=== PATIENT | female | born 1960 | race Hispanic/Latino ===

== ENCOUNTER 2016-09-02 10:19 | Emergency (ER) | payer OTHER ==
[~2016-09-02] VITALS: Ht 167.6 cm; Wt 125.0 kg
[~2016-09-02 10:19] MED LIST: ATEN50TA PO; KLO5T PO; LEVO100T6 PO; LISI30TA5 PO; PROZ20 PO; TRIA1CAP5 PO
[2016-09-02 10:26] VITALS: BP 112/71; PULSE 61; RESP 18; O2SAT 93
--- NOTE | 2016-09-02 11:02 | ED.REPORT ---
HPI-General Illness Date of Service Sep 02, 2016 ED Provider: Darnell Moreno MD The patient is a 56 year old female with history of hypertension, thyroid disease, and breast cancer s/p lumpectomy, who was sent to the emergency department from urgent care for upper back pain. The patient went to urgent care this morning for blood pressure issues. She feels like she has no energy. She has also experienced nausea, changes in temperature from hot to cold, and heel pain causing difficulty walking. She also feels like her skin is extremely dry. She denies chest pain, cough, hemoptysis, congestion, runny nose, sore throat, chest pain, shortness of breath, lower extremity swelling, abdominal pain, constipation, diarrhea, or dysuria. Nursing Notes Stated Complaint: UPPER BACK PAIN Chief Complaint: General Complaint Nursing Notes Reviewed: Yes Allergies: Coded Allergies: No Known Allergies (Verified Allergy, Unknown, 01/15/16) Scheduled Atenolol (Atenolol) 50 Mg Tablet 50 MG PO DAILY Azithromycin (Zithromax (Z-Ward)) 250 Mg Tablet 250 MG PO DIRECTED Take two tablets by mouth on day 1, then take one tablet daily on days 2 through 5. Fluoxetine (Prozac) 20 Mg Capsule 60 MG PO DAILY Levothyroxine (Levothyroxine) 100 Mcg Tablet 100 MCG PO DAILY Levothyroxine (Levothyroxine) 125 Mcg Tablet 125 MCG PO DAILY Lisinopril (Lisinopril) 30 Mg Tablet 20 MG PO DAILY Triamterene/HCTZ 37.5-25 mg (Triamterene/HCTZ 37.5-25 mg) 1 Each Capsule 1 CAPSULE PO DAILY Scheduled PRN Clonazepam (Clonazepam) 0.5 Mg Tablet 0.5 MG PO BID PRN PRN For Anxiety General Time Seen by MD: 10:38 Chief Complaint Back pain Hx Obtained From: Patient Arrived By: Wheelchair Sudden in Onset?: No Symptom Duration: Since onset Location: : Back: Foot left: Foot right Quality: Painful Severity: Current: Moderate Severity: Maximum: Moderate Recent Healthcare: No recent hospitalization, Recent doctor visit Similar Sx Previous: No Past Medical History Past Medical History Breast cancer Reports: Hypertension Reports: Thyroid disease Past Surgical History Lumpectomy Hand surgery Reports: Hysterectomy Family History Reports: Stroke Smoking History Current Every Day Smoker Social History Alcohol Use: "Social" Drug Use: THC Other Social History: Poor social support, Local resident Ambulatory Status Independent Review of Systems +temperature changes, dry skin Full Review of Systems Constitutional: Reports: Fatigue Ears / Nose / Throat: Denies: Nasal congestion, Sore throat Respiratory: Denies: Hemoptysis, Non-productive cough, Shortness of breath Cardiovascular: Denies: Chest pain GI: Reports: Nausea, Denies: Abdominal pain, Constipation, Diarrhea, Vomiting Female: Denies: Dysuria Musculoskeletal: Reports: Back pain, Extremity pain (heel pain), Denies: Extremity swelling Neurologic: Reports: Problem walking (due to pain) Complete sys rev & neg: except as marked. Physical Exam Vital Signs Vital Signs Date Time Temp Pulse Resp B/P Pulse Ox O2 Delivery O2 Flow Rate FiO2 09/02/16 14:03 66 15 131/80 97 Room Air 09/02/16 14:02 66 15 131/80 97 Room Air 09/02/16 10:26 36.0 61 18 112/71 93 Room Air Initial VS: Reviewed Head / Eyes: Atraumatic, Normocephalic, PERRL ENT: Mucous membranes moist, Conjunctiva normal, No scleral icterus Neck: Supple, Non-tender, Full range of motion Lymphatic: No lymphadenopathy Extremities: Vascular intact, Neuro intact, No swelling, No tenderness Skin: Warm, Dry, No cyanosis Neurologic: Alert, Oriented, Nonfocal Psychiatric: Mood/affect normal, Behavior normal, Normal thought content General/Constitutional: Awake, Alert, Well appearing Respiratory / Chest: Atraumatic, Breath sounds NL, Breath sounds = bilat, No respiratory distress, No rales, No rhonchi, No wheezing Cardiovascular: Heart rate NL, Regular rhythm, Heart sounds NL, No murmurs, No rubs, Cap refill not delayed, Peripheral circulation NL Abdomen: Atraumatic, Soft, Non-tender, No guarding, No rebound, BS normoactive , No distention Interpretation & Diagnostics Lab Results Interpretation Result Diagram: 09/02/16 1101 09/02/16 1101 Test 09/02/16 11:01 White Blood Count 9.8th/mm3 (3.8-10.1) Red Blood Count 4.56mil/mm3 (3.90-5.20) Hemoglobin 13.8g/dL (12.0-15.6) Hematocrit 42.0% (35.0-46.0) Mean Corpuscular Volume 92.1fL (81-100) Mean Corpuscular Hemoglobin 30.3pg (27.0-35.0) Mean Corpuscular Hemoglobin Concent 32.9% (32.0-37.0) Red Cell Distribution Width 13.9% (12.3-15.4) Platelet Count 153bil/L (150-400) Neutrophils (%) (Auto) 70.0% (40-74) Lymphocytes (%) (Auto) 19.0% (14-46) Monocytes (%) (Auto) 6.4% (4-12) Eosinophils (%) (Auto) 3.7% (0-5) Basophils (%) (Auto) 0.6% (0-3) D-Dimer 1.06mg/L FEU (<0.50) Sodium Level 138mEq/L (134-144) Potassium Level 3.9mEq/L (3.5-5.2) Chloride Level 101mEq/L (97-108) Carbon Dioxide Level 20mmol/L (18-29) Blood Urea Nitrogen 18mg/dL (6-24) Creatinine 1.14mg/dL (0.57-1.00) Estimat Glomerular Filtration Rate 71mL/min (>59) Glucose Level 116mg/dL (60-99) Calcium Level 9.3mg/dL (8.5-10.1) Total Bilirubin 0.3mg/dL (0.0-1.2) Aspartate Amino Transf (AST/SGOT) 17U/L (0-50) Alanine Aminotransferase (ALT/SGPT) 20U/L (0-32) Alkaline Phosphatase 71U/L (25-150) Troponin T < 0.010ug/L (0.0-0.011) Total Protein 7.4g/dL (6.4-8.4) Albumin 3.7g/dL (3.4-5.0) Thyroid Stimulating Hormone (TSH) 57.930uIU/mL (0.450-4.500) Hold Villanueva Top Tube Received (Received) CT Chest Interpretation IMPRESSION: 1. No evidence of pulmonary embolism. 2. Mild bronchial wall prominence within the infrahilar regions may be exaggerated by expiratory technique. Bronchitis may also have this appearance. No consolidating pneumonia or pleural effusion. 3. Postoperative changes of the left breast and axilla. Skin thickening of the left breast may be postoperative or related to radiation change. Please correlate clinically. 4. Prominent thyroid gland is not adequately evaluated. 5. Hepatic steatosis. 6. Small hiatal hernia. Dictated by: Prudencio Mc M.D. on 09/02/2016 at 12:14 Study type: CT pulm angiogram Interpretation / Wet Read by: Interpret - Radiologist Re-Eval/Medical Decision Med Decision/Clinical Course 56-year-old female history of hypothyroidism, obesity presenting sent in by urgent care for left subscapular pain. Patient reports this is resolved. She reports decreased energy for several days. Her levothyroxine was recently increased from 100-125. Her TSH is markedly elevated. D-dimer elevated therefore CT and her chest performed with no PE. Did show possible bronchitis. She has had a cough productive of some sputum recently with no fevers or shortness of breath. Given patient's levothyroxin recently increased to weeks ago recommend she continue this follow-up with her primary doctor in 2 days with plans for repeat thyroid studies as an outpatient. She was given azithromycin for bronchitis. Return precautions given. Source of Hx: Old records Time of Eval: 13:38 Re-Evaluation/Progress Note: Rechecked the patient. Discussed results, diagnosis, and plan for discharge. All qusetions were addressed. Counseled Regarding: Diagnosis, Lab results, Need for follow-up, When/why to return to ED Discharge & Departure Primary Impression: Bronchitis Additional Impression: Hypothyroidism Hypothyroidism type: unspecified Qualified Code: E03.9 - Hypothyroidism, unspecified Disposition: Home Discharge Condition All VS Reviewed: Yes Condition: Stable Patient Instructions: Acute Bronchitis (ED), Hypothyroidism (ED) Additional Instructions: Thank you for entrusting us with your care today. Your workup today included: labs and chest CT. There is no evidence of a pulmonary embolism. Your TSH level was elevated which is consistent with hypothyroidism. You will need to increase your levothyroxine dose to 125 Mcg daily. I have also written you a prescription for azithromycin for the bronchitis. Call your regular doctor today to schedule a close followup appointment in the next 2-3 days. Please return to the emergency department if you develop worsening shortness of breath , chest pain, fatigue, or any other new or concerning symptoms. Referrals: Tangela Lyons DO (PCP) Ty Attestation Portions of this note were transcribed by Debra Woody. I, Dr. Moreno personally performed the history, physical exam and medical decision-making; I reviewed and confirmed the accuracy of the information in the transcribed note. Signed by: Ty Samuel, 09/02/2016 at 1345. copies to: Tangela Lyons Ben M MD Sep 02, 2016 11:02 Debra Woody Sep 02, 2016 11:11
[2016-09-02 11:10] LABS: BASOPHILS % (AUTO) 0.6 % (0-3); EOSINOPHILS % (AUTO) 3.7 % (0-5); MONOCYTES % (AUTO) 6.4 % (4-12); Mean Corpuscular Hemoglobin 30.3 pg (27.0-35.0); Mean Corpuscular Volume 92.1 fL (81-100); Platelet Count 153 bil/L (150-400)
[2016-09-02] MEDS ORDERED: Ondansetron 2 mg/mL 2 mL Inj IVPUSH PRN (12:50)
--- NOTE | 2016-09-02 13:23 | DRSVH ---
PROCEDURE: CT ANGIO CHEST PULMONARY EMBOLISM ([id number]) INDICATIONS: LEFT SIDED CHEST PAIN, r/o PE TECHNIQUE: After the administration of intravenous contrast, 2 mm thick sections acquired from the pulmonary api vinny to the posterior costophrenic angles. 3-dimensional maximum intensity projection (MIP) coronal a nd sagittal reformats were then acquired through the thorax. For radiation dose reduction, the follo wing was used: automated exposure control, adjustment of mA and/or kV according to patient size. COMPARISON: None. FINDINGS: Image quality: Diagnostic. Pulmonary arteries: Pulmonary arteries are normal in size, and demonstrate no intraluminal filling d efects to suggest central pulmonary embolism. Lungs and pleura: Notion of the lung parenchyma is limited on this examination given the expiratory s stiles. Mild prominence of the guerrier of the infrahilar bronchi are noted. There is no lobar consolida tion, effusion, or pneumothorax. Evaluation for pulmonary edema is limited on this study. No lung m ass or obvious pulmonary nodule is evident. However, evaluation for pulmonary nodules is limited. Mediastinum: Heart size is normal, without pericardial effusion. No mediastinal or hilar adenopathy . Thoracic aorta is normal in caliber and enhancement. Esophagus is normal in caliber, with a small hiatal hernia. Bones and chest wall: No suspicious bony lesions. Ribs and thoracic spine appear intact throughout. Moderate degenerative changes of the spine are present. Thyroid gland prominent in size. No axill tanna or supraclavicular adenopathy. Postoperative changes are present within the left axilla, suggest ing prior lymph node dissection. There also are clips seen within the left breast. Prominent thicke debby of the skin of the left breast is noted, compared to the right. Abdomen: The imaged portions of the upper abdomen demonstrate the liver to be diffusely hypodense whe n compared to the spleen. A small calcification is noted within the left adrenal gland, which is of doubtful significance. IMPRESSION: 1. No evidence of pulmonary embolism. 2. Mild bronchial wall prominence within the infrahilar regions may be exaggerated by expiratory félix hnique. Bronchitis may also have this appearance. No consolidating pneumonia or pleural effusion. 3. Postoperative changes of the left breast and axilla. Skin thickening of the left breast may be p ostoperative or related to radiation change. Please correlate clinically. 4. Prominent thyroid gland is not adequately evaluated. 5. Hepatic steatosis. 6. Small hiatal hernia. Dictated by: Prudencio Mc M.D. on 09/02/2016 at 12:14 Approved by: Prudencio Mc M.D. on 09/02/2016 at 12:21
[2016-09-02] MEDS ORDERED: AZIT250T4 PO (13:36)
[2016-09-02] MEDS ORDERED: LEVO125T6 PO (13:36)
[2016-09-02 14:02] VITALS: BP 131/80; PULSE 66; RESP 15; O2SAT 97
[2016-09-02 14:03] VITALS: BP 131/80; PULSE 66; RESP 15; O2SAT 97
== END 2016-09-02 14:05 | disposition home or self-care (01) ==
LOC: SED 10:19
DX: J40 Bronchitis, not specified as acute or chronic (principal); E03.9 Hypothyroidism, unspecified; I10 Essential (primary) hypertension; F17.200 Nicotine dependence, unspecified, uncomplicated; K44.9 Diaphragmatic hernia without obstruction or gangrene; K76.0 Fatty (change of) liver, not elsewhere classified; Z85.3 Personal history of malignant neoplasm of breast
CPT/HCPCS: 71275; 80053; 84443; 84484; 85025; 85378; 96374; 99285; J2405; Q9967

== ENCOUNTER → 2017-02-20 | Day surgery (SDC) | payer OTHER ==
[~2017-02-20] VITALS: Ht 167.6 cm; Wt 124.8 kg
[~2017-02-20] MED LIST changes: +0.9% Sodium Chloride 1,000 ML IV SCH; +AZIT250T4 PO; +LEVO125T6 PO; +Sodium Chloride LOK Flush 10 mL Syringe IV PRN; +fentaNYL-PF 50 mCg/mL 2 mL Inj IVPUSH PRN
[2017-02-20 12:14] VITALS: BP 145/83; PULSE 57; RESP 17; O2SAT 95
--- NOTE | 2017-02-20 12:32 | PCM.ENDCOL ---
Colonoscopy Date of Service: Feb 20, 2017 Physician Jose L Cason MD Pre Procedure Diagnosis: Screening Post Procedure Dx & Findings: Polyp hemorrhoids diverticula Procedure Colonoscopy PROCEDURE IN DETAIL: Prep adequate Withdrawal time 10 minutes After unremarkable rectal examination the Olympus video colonoscope was inserted patient's anal canal and was advanced to cecum. Landmarks were identified including the ileocecal valve and appendiceal orifice. Scope was withdrawn systematically. Visualized colonic mucosa showed healthy shiny mucosa with normal healthy-appearing vasculature. In the cecum, there was a 1 mm polyp which was removed completely with cold forceps. In the descending colon, there was a 3 mm polyp which was removed completely with cold snare. In the sigmoid colon, there was a 3 mm polyp was removed which was removed completely using cold snare. Patient with diverticula mostly in the sigmoid colon but scattered all the way into the proximal ascending colon. There were small and large. In the rectum retroflexion was done which showed hemorrhoids. Anal canal was inspected carefully on the way out and hemorrhoids noted. Impression Polyp 3 status post complete removal Diverticuli Hemorrhoids Recommendation Repeat colonoscopy 3 years Diverticular diet Presedation Assessment Risks and Benefits Informed consent was obtained from the patient after all risks and benefits including but not limited to drug reaction, infection, pain, bleeding, perforation, as well as alternatives were discussed. Patient monitoring Continuous pulse oximetry, cardiac monitoring, blood pressure monitoring, IV access, and oxygen at 2L per nasal cannula. Periprocedural Fentanyl: Fentanyl 75mcg Incrementally Midazolam: Midazolam 3mg Incrementally Complications There were no periprocedural complications identified. Post Procedure Plan Post Procedure Recommendations 1. Restrict activities today. 2. Resume normal activities in the morning. 3. Resume medications. 4. Patient informed of normal post procedure side effects as bloating, drowsiness, blood streaking in the stool. 5. average risk CRCS. If colon polyps come back as: -Hyperplastic- can repeat colonoscopy in 10 years -Tubular adenoma- repeat colonoscopy in 5 years -Tubulovillous/villous adenoma- repeat colonoscopy in 3 years -If any dysplasia- return to clinic as soon as possible 6. Please don't hesitate to call me with any questions. Jose L Cason MD Feb 20, 2017 12:32
[2017-02-20 12:37] VITALS: BP 123/71; PULSE 60; RESP 14; O2SAT 93
[2017-02-20 12:44] VITALS: BP 119/71; PULSE 59; RESP 14; O2SAT 93
[2017-02-20 12:53] VITALS: BP 137/69; PULSE 60; RESP 12; O2SAT 94
--- NOTE | 2017-02-21 13:50 | PATH ---
SURGICAL PATHOLOGY Attending Physician:Jose L Cason M.D. CASE STATUS: Signed Out PATIENT NAME: BERNADETTE FERRERA PID: [id number] : 1960 DATE COLLECTED:02/20/2017 19:43 SPECIMEN: 1: Colon, Polyp 2: Colon, Polyp 3: Colon, Polyp CLINICAL HISTORY: POLYPS 1). CECAL POLYP X 1 2). DESCENDING COLON POLYP X 1 3). SIGMOID COLON POLYP X 1 FINAL DIAGNOSIS: 1. Cecal Polyp, Biopsy: Colonic mucosa with prominent benign lymphoid aggregate. 2. Descending Colon Polyp, Biopsy: Hyperplastic polyp. 3. Sigmoid Colon Polyp, Biopsy: Hyperplastic polyp. ICD10: K63.5 GROSS DESCRIPTION: The specimen is received in three formalin filled containers labeled with the patient's name. 1). The specimen is labeled "cecal polyp" and consists of a 0.2 x 0.2 x 0.2 CM portion of tissue which is entirely submitted in cassette 1A. 2). The specimen is labeled "descending colon polyp" and consists of a 0.3 x 0.2 x 0.2 CM portion of tissue which is entirely submitted in cassette 2A. 3). The specimen is labeled "sigmoid colon polyp" and consists of a 0.4 x 0.3 x 0.3 CM portion of tissue which is entirely submitted in cassette 3A. 02/20/2017DC ICD-9 CODES: CPT CODES: 1: 40549 2: 20664 3: 26879 Electronically Signed Out Melquiades Reyes MD, Ph.D. [facility] Pathology [facility] [address] [place] [address], [place] [address] Technical component performed at [facility], [facility] [address], [place], [address]
== END | disposition home or self-care (01) ==
LOC: END 00:43
PROVIDERS: ATTEND Internal Medicine
DX: Z12.11 Encounter for screening for malignant neoplasm of colon (principal); K63.5 Polyp of colon; K57.30 Diverticulosis of large intestine without perforation or abscess without bleeding; K64.9 Unspecified hemorrhoids; I10 Essential (primary) hypertension; E03.9 Hypothyroidism, unspecified; F41.8 Other specified anxiety disorders; E66.01 Morbid (severe) obesity due to excess calories; Z68.42 Body mass index [BMI] 45.0-49.9, adult; Z85.3 Personal history of malignant neoplasm of breast
CPT/HCPCS: 45380; 45385; 88305; 99152; J2250; J3010; J7030